=== PATIENT | female | born 1985 | race Caucasian/White ===

== ENCOUNTER 2019-09-11 14:14 | Emergency (ER) | payer BC, OTHER ==
--- NOTE | 2019-09-11 14:24 | EDM.PDOC ---
ED HPI GENERAL MEDICAL PROBLEM - General Chief Complaint: ENT Problem Stated Complaint: THROAT/CANNOT SWALLOW Time Seen by Provider: 09/11/19 14:23 Source of Information: Reports: Patient, RN, RN Notes Reviewed History Limitations: Reports: No Limitations - History of Present Illness INITIAL COMMENTS - FREE TEXT/NARRATIVE: 33 y.o F presents with reports of difficulty swallowing, ongoing x 1 month but worsened yesterday and today. Pt reports "it feels like something is squeezing right in the middle of my chest" not letting food go down into stomach. Pt states she has to sip water and swallow several times to get food to go down. Admits to long Hx of chronic GERD, mostly untreated but has been using an OTC acid mortarman for a few days without relief. No prescribed medications at home per patient. She has not seen a physician for many years. Pt denies medical Hx other than GERD, but reports that she has had an upper scope down her throat several years ago, but unsure what year. Otherwise Hx of 2 pregnancies with c/ sect. x2 and a tubal ligation. 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 x2) Social & Family History - Family History Family Medical History: Noncontributory - Tobacco Use Smoking Status *Q: Never Smoker - Living Situation & Occupation Occupation: Employed ED ROS ENT - Review of Systems Review Of Systems: Comprehensive ROS is negative, except as noted in HPI. ED EXAM, ENT - Physical Exam Exam: See Below Exam Limited By: No Limitations General Appearance: Alert, WD/WN, No Apparent Distress Eye Exam: Bilateral Eye: Normal Inspection (No scleral icterus) Nose: Normal Inspection Mouth/Throat: Normal Inspection, Normal Gums, Normal Lips, Normal Oropharynx, Normal Teeth Head: Atraumatic, Normocephalic Neck: Normal Inspection, Supple, Non-Tender, Full Range of Motion. No: Carotid Bruit, Lymphadenopathy (L), Lymphadenopathy (R) Respiratory/Chest: No Respiratory Distress, Lungs Clear, Normal Breath Sounds, No Accessory Muscle Use, Chest Non-Tender Cardiovascular: Regular Rate, Rhythm GI/Abdominal: Normal Bowel Sounds, Soft, Non-Tender, No Organomegaly, No Distention, No Abnormal Bruit, No Mass Neurological: Alert, Oriented, No Motor/Sensory Deficits Psychiatric: Depressed Mood, Flat Affect Skin: Warm, Dry, Intact, Normal Color, No Rash Course - Vital Signs Last Recorded V/S: Last Vital Signs Temp 98.1 F 09/11/19 14:24 Pulse 59 L 09/11/19 14:24 Resp 18 09/11/19 14:24 BP 134/80 09/11/19 14:24 Pulse Ox 100 09/11/19 14:24 - Orders/Labs/Meds Labs: Laboratory Tests 09/11/19 09/11/19 Range/Units 14:48 14:48 WBC 7.1 (5.0-10.0) 10^3/uL RBC 4.19 L (4.2-5.4) 10^6/uL Hgb 14.1 (12.0-16.0) g/dL Hct 40.0 (37.0-47.0) % MCV 95.5 (80-100) fL MCH 33.7 (27.0-34.0) pg MCHC 35.3 H (33.0-35.0) g/dL Plt Count 159 (150-450) 10^3/uL Neut % (Auto) 44.9 (42.2-75.2) % Lymph % (Auto) 44.8 (20.5-50.1) % [place] % (Auto) 9.0 H (2-8) % Eos % (Auto) 1.0 (1.0-3.0) % Baso % (Auto) 0.3 (0.0-1.0) % Sodium 141 (136-145) mmol/L Potassium 3.5 (3.5-5.1) mmol/L Chloride 103 (98-107) mmol/L Carbon Dioxide 30 (21-32) mmol/L Anion Gap 11.5 (7-13) mEq/L BUN 9 (7-18) mg/dL Creatinine 0.92 (0.55-1.02) mg/dL Est Cr Clr Drug Dosing 92.29 mL/min Estimated GFR (MDRD) > 60 BUN/Creatinine Ratio 9.8 (No establ ref range) Glucose 87 (74-99) mg/dL Calcium 8.5 (8.5-10.1) mg/dL Total Bilirubin 0.7 (0.2-1.0) mg/dL AST 18 (15-37) U/L ALT 26 (14-59) U/L Alkaline Phosphatase 89 (46-116) U/L Total Protein 7.3 (6.4-8.2) g/dL Albumin 3.8 (3.4-5.0) g/dL Globulin 3.5 Albumin/Globulin Ratio 1.1 Amylase 42 (25-115) U/L Lipase 150 (73-393) U/L - Radiology Interpretation Free Text/Narrative:: XR Chest: no acute process per Rad. report. Departure - Departure Time of Disposition: 15:36 Disposition: Home, Self-Care 01 Condition: Good Clinical Impression: Esophageal stricture, GERD with esophagitis, Esophageal spasm - Discharge Information *PRESCRIPTION DRUG MONITORING PROGRAM REVIEWED*: Not Applicable *COPY OF PRESCRIPTION DRUG MONITORING REPORT IN PATIENT TRAVIS: Not Applicable Instructions: Esophagitis, Food Choices for Gastroesophageal Reflux Disease, Adult, [id number], Esophageal Spasm Forms: ED Department Discharge Additional Instructions: Rx: Omeprazole 20mg Follow up at [facility] in [place] with Dr. Vang for consideration of an upper endoscopy. Sepsis Event Note - Focused Exam Vital Signs: Vital Signs Temp Pulse Resp BP Pulse Ox 09/11/19 14:24 98.1 F 59 L 18 134/80 100 Date Exam was Performed: 09/11/19 Time Exam was Performed: 15:35
--- NOTE | 2019-09-11 15:13 | CR ---
EXAMINATION: Chest 2V SEX: Female AGE: 33 years CLINICAL HISTORY: 33-year-old female upper chest globus sensation and short of breath (SOB). INTERPRETATION: 1. Less than optimal inspiratory effort crowding and accentuating the bronchovascular markings. 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 2. Normal cardiac silhouette. No pulmonary vascular congestion, cephalization of flow, alveolar edema or dependent pleural effusion. 3. No lung mass or hilar lymphadenopathy. 4. No focal lobar infiltrate, atelectasis or collapse. 5. No pneumothorax or pneumomediastinum. Normal-appearing midline tracheobronchial airway. No free subdiaphragmatic air. CONCLUSION: No acute cardiopulmonary abnormality.
[2019-09-11 15:27] LABS: ANION GAP 11.5 mEq/L (7-13); CHLORIDE,CL 103 mmol/L (98-107); SODIUM,NA 141 mmol/L (136-145)
== END 2019-09-11 15:44 | disposition home or self-care (01) ==
LOC: DL.ED 14:14
DX: K21.0 Gastro-esophageal reflux disease with esophagitis (principal); K22.4 Dyskinesia of esophagus; K22.2 Esophageal obstruction
CPT/HCPCS: 36415; 71046; 80053; 82150; 83690; 85025; 99284-25

== ENCOUNTER 2024-02-04 15:22 | Emergency (ER) | payer OTHER | END 2024-02-04 18:29 | disposition home or self-care (01) | LOC: DL.ED 15:22 | DX: S92.352A Displaced fracture of fifth metatarsal bone, left foot, initial encounter for closed fracture (principal); W18.41XA Slipping, tripping and stumbling without falling due to stepping on object, initial encounter | CPT/HCPCS: 29515; 73610-LT; 73630-LT; 99283-25 ==